=== PATIENT | male | born 1950 | race Caucasian/White ===

== ENCOUNTER 2016-07-07 08:35 | Outpatient (CLI) | payer BC | END 2016-07-07 08:36 | disposition home or self-care (01) | DX: B18.2 Chronic viral hepatitis C (principal) ==

== ENCOUNTER 2016-07-20 08:27 | Outpatient (CLI) | payer BC | END 2016-07-20 08:28 | disposition home or self-care (01) | DX: I48.91 Unspecified atrial fibrillation (principal); Z79.01 Long term (current) use of anticoagulants ==

== ENCOUNTER 2016-08-17 08:20 | Outpatient (CLI) | payer BC | END 2016-08-17 08:21 | disposition home or self-care (01) | DX: I48.91 Unspecified atrial fibrillation (principal); Z79.01 Long term (current) use of anticoagulants ==

== ENCOUNTER 2016-09-14 08:24 | Outpatient (CLI) | payer BC | END 2016-09-14 08:25 | disposition home or self-care (01) | DX: I48.91 Unspecified atrial fibrillation (principal); Z79.01 Long term (current) use of anticoagulants ==

== ENCOUNTER 2016-09-29 08:50 | Outpatient (CLI) | payer BC | END 2016-09-29 08:51 | disposition home or self-care (01) | DX: B18.2 Chronic viral hepatitis C (principal) ==

== ENCOUNTER 2016-10-12 08:45 | Outpatient (CLI) | payer BC | END 2016-10-12 08:46 | disposition home or self-care (01) | DX: I48.91 Unspecified atrial fibrillation (principal); Z79.01 Long term (current) use of anticoagulants ==

== ENCOUNTER 2016-11-09 08:18 | Outpatient (CLI) | payer BC | END 2016-11-09 08:19 | disposition home or self-care (01) | LOC: LAB.F 08:18 | PROVIDERS: ATTEND Family Medicine | DX: I48.91 Unspecified atrial fibrillation (principal); Z79.01 Long term (current) use of anticoagulants | CPT/HCPCS: 85610 ==

== ENCOUNTER 2016-12-07 08:12 | Outpatient (CLI) | payer BC | END 2016-12-07 08:13 | disposition home or self-care (01) | LOC: LAB.F 08:12 | PROVIDERS: ATTEND Family Medicine | DX: I48.91 Unspecified atrial fibrillation (principal) | CPT/HCPCS: 85610 ==

== ENCOUNTER 2017-01-04 08:28 | Outpatient (CLI) | payer BC | END 2017-01-04 08:29 | disposition home or self-care (01) | DX: I48.91 Unspecified atrial fibrillation (principal) ==

== ENCOUNTER 2017-01-25 08:56 | Outpatient (CLI) | payer BC | END 2017-01-25 08:57 | disposition home or self-care (01) | LOC: LAB.F 08:56 | PROVIDERS: ATTEND Family Medicine | DX: I48.91 Unspecified atrial fibrillation (principal) | CPT/HCPCS: 85610 ==

== ENCOUNTER 2017-02-22 08:25 | Outpatient (CLI) | payer BC | END 2017-02-22 08:26 | disposition home or self-care (01) | LOC: LAB.F 08:25 | PROVIDERS: ATTEND Family Medicine | DX: I48.91 Unspecified atrial fibrillation (principal) | CPT/HCPCS: 85610 ==

== ENCOUNTER 2017-03-22 08:25 | Outpatient (CLI) | payer BC | END 2017-03-22 08:26 | disposition home or self-care (01) | LOC: LAB.F 08:25 | PROVIDERS: ATTEND Family Medicine | DX: I48.91 Unspecified atrial fibrillation (principal); Z79.01 Long term (current) use of anticoagulants; I48.2 Chronic atrial fibrillation; Z95.2 Presence of prosthetic heart valve | CPT/HCPCS: 85610 ==

== ENCOUNTER 2017-04-19 08:26 | Outpatient (CLI) | payer BC | END 2017-04-19 08:27 | disposition home or self-care (01) | LOC: LAB.F 08:26 | PROVIDERS: ATTEND Family Medicine | DX: I48.91 Unspecified atrial fibrillation (principal); Z79.01 Long term (current) use of anticoagulants | CPT/HCPCS: 85610 ==

== ENCOUNTER 2017-05-17 08:23 | Outpatient (CLI) | payer BC | END 2017-05-17 08:24 | disposition home or self-care (01) | LOC: LAB.F 08:23 | PROVIDERS: ATTEND Family Medicine | DX: I48.91 Unspecified atrial fibrillation (principal); Z79.01 Long term (current) use of anticoagulants | CPT/HCPCS: 85610 ==

== ENCOUNTER 2017-06-14 08:14 | Outpatient (CLI) | payer BC | END 2017-06-14 08:15 | disposition home or self-care (01) | LOC: LAB.F 08:14 | PROVIDERS: ATTEND Family Medicine | DX: I48.91 Unspecified atrial fibrillation (principal); Z79.01 Long term (current) use of anticoagulants | CPT/HCPCS: 36415; 83880; 85610 ==

== ENCOUNTER 2017-07-05 08:29 | Outpatient (CLI) | payer BC | END 2017-07-05 08:30 | disposition home or self-care (01) | LOC: LAB.F 08:29 | PROVIDERS: ATTEND Family Medicine | DX: I48.91 Unspecified atrial fibrillation (principal); Z79.01 Long term (current) use of anticoagulants | CPT/HCPCS: 85610 ==

== ENCOUNTER 2017-08-02 08:27 | Outpatient (CLI) | payer BC | END 2017-08-02 08:28 | disposition home or self-care (01) | LOC: LAB.F 08:27 | PROVIDERS: ATTEND Family Medicine | DX: I48.91 Unspecified atrial fibrillation (principal); Z79.01 Long term (current) use of anticoagulants | CPT/HCPCS: 85610 ==

== ENCOUNTER 2017-08-23 08:50 | Outpatient (CLI) | payer BC | END 2017-08-23 08:51 | disposition home or self-care (01) | LOC: LAB.F 08:50 | PROVIDERS: ATTEND Family Medicine | DX: I48.91 Unspecified atrial fibrillation (principal); Z79.01 Long term (current) use of anticoagulants | CPT/HCPCS: 85610 ==

== ENCOUNTER 2017-09-13 08:41 | Outpatient (CLI) | payer BC | END 2017-09-13 08:42 | disposition home or self-care (01) | LOC: LAB.F 08:41 | PROVIDERS: ATTEND Family Medicine | DX: I48.91 Unspecified atrial fibrillation (principal); Z79.01 Long term (current) use of anticoagulants | CPT/HCPCS: 85610 ==

== ENCOUNTER 2017-10-18 09:19 | Outpatient (CLI) | payer BC | END 2017-10-18 09:20 | disposition home or self-care (01) | LOC: LAB.F 09:19 | PROVIDERS: ATTEND Family Medicine | DX: I48.91 Unspecified atrial fibrillation (principal); Z79.01 Long term (current) use of anticoagulants | CPT/HCPCS: 85610 ==

== ENCOUNTER 2017-11-01 08:43 | Outpatient (CLI) | payer BC | END 2017-11-01 08:44 | disposition home or self-care (01) | LOC: LAB.F 08:43 | PROVIDERS: ATTEND Family Medicine | DX: I48.91 Unspecified atrial fibrillation (principal); Z79.01 Long term (current) use of anticoagulants | CPT/HCPCS: 85610 ==

== ENCOUNTER 2017-11-22 08:44 | Outpatient (CLI) | payer BC | END 2017-11-22 08:45 | disposition home or self-care (01) | LOC: LAB.F 08:44 | PROVIDERS: ATTEND Family Medicine | DX: I48.91 Unspecified atrial fibrillation (principal); Z79.01 Long term (current) use of anticoagulants | CPT/HCPCS: 85610 ==

== ENCOUNTER 2017-11-25 12:05 | Emergency (ER) | payer BC ==
--- NOTE | 2017-11-25 12:51 | ED Physician Documentation ---
PD HPI HEADACHE - Stated complaint Stated Complaint: MIGRAINE/DOUBLE VISION - Chief complaint Chief Complaint: Neuro - History obtained from History obtained from: Patient - History of Present Illness Timing - onset: How many weeks ago (1+) Timing - onset during: Rest Timing - duration: Weeks (1+) Timing - details: Gradual onset, Still present Worst headache ever?: No: Worst headache ever? Location: Right Quality: Throbbing, Aching Associated symptoms: Vision changes. No: Fever, Stiff neck, Nausea, Vomiting, Weakness, Numbness, Syncope, Seizure, Eye pain Improved by: Rest, Dark room Worsened by: Light Contributing factors: Anticoagulated Similar symptoms before: Has not had sx before Recently seen: Not recently seen - Additional information Additional information: 67-year-old male with atrial fibrillation on Coumadin has developed a headache about 1 week ago and headache is persisted so on the right side and he does not usually get headaches. He is also noted in the past 48 hours he has some double vision. His vision is slightly better here in the emergency department and he notes that on the way to the hospital he had a closed when I just to see well. He has never had double vision previously. He has had a cough and congestion he has some allergies to pollen and usually he takes some Claritin that helps with this. This is not help with them recently and he is developed nasal congestion and a cough. Review of Systems Constitutional: denies: Fever, Chills, Myalgias Eyes: reports: Other (double vision) Ears: denies: Ear pain Nose: reports: Rhinorrhea / runny nose, Congestion Throat: denies: Sore throat Cardiac: denies: Chest pain / pressure, Palpitations Respiratory: reports: Cough. denies: Dyspnea GI: denies: Abdominal Pain, Nausea, Vomiting : denies: Dysuria, Frequency PD PAST MEDICAL HISTORY - Present Medications Home Medications: Ambulatory Orders Medication Instructions Recorded Confirmed Atorvastatin Calcium 40 mg PO 11/25/17 Azithromycin [Zithromax] 250 mg PO DAILY #6 tablet 11/25/17 Diltiazem HCl [Diltiazem ER] 60 mg PO 11/25/17 Furosemide [Lasix] 20 mg PO 11/25/17 Lisinopril 20 mg PO 11/25/17 Warfarin [Coumadin] 2.5 mg PO 1400 11/25/17 11/25/17 - Allergies Allergies/Adverse Reactions: Allergies Allergy/AdvReac Type Severity Reaction Status Date / Time No Known Drug Allergies Allergy Verified 11/25/17 12:10 PD ED PE NORMAL - Vitals Vital signs reviewed: Yes (hypertensive) - General General: Alert and oriented X 3, No acute distress, Well developed/nourished - HEENT HEENT: Atraumatic, PERRL, EOMI, Other (both TM's are erythematous the right is much more so than the left and there is rounding of the landmarks. ) - Neck Neck: Supple, no meningeal sign, No bony TTP - Cardiac Cardiac: RRR, No murmur - Respiratory Respiratory: No respiratory distress, Clear bilaterally - Abdomen Abdomen: Soft, Non tender - Back Back: No CVA TTP, No spinal TTP - Derm Derm: Normal color, Warm and dry, No rash - Extremities Extremities: No deformity, No edema - Neuro Neuro: Alert and oriented X 3, anchorman 2-12 intact, No motor deficit, No sensory deficit, Normal speech Eye Opening: Spontaneous Motor: Obeys Commands Verbal: Oriented GCS Score: 15 - Psych Psych: Normal mood, Normal affect Results - Vitals Vitals: Vital Signs - 24 hr 11/25/17 12:08 Temperature 36.1 C L Heart Rate 79 Respiratory 18 Rate Blood Pressure 140/99 H O2 Saturation 98 Oxygen O2 Source Room air - Labs Labs: Laboratory Tests 11/25/17 13:05 Whole Blood INR 2.0 H - Rads (name of study) CT head without Radiology: Prelim report reviewed (Impression: 1. No acute intracranial abnormality evident. No intracranial hemorrhage or space-occupying lesion. 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 3 Atherosclerosis.), EMP read indepedently, See rad report PD MEDICAL DECISION MAKING - ED course Complexity details: reviewed results, re-evaluated patient, considered differential, d/w patient, d/w family ED course: 67-year-old male with a headache for the past week on the right side is on Coumadin and his INR is 2.0. CT is without evidence of hemorrhage and on examination he does have otitis. He is administered dexamethasone 10 mg orally and we will place him on some azithromycin as well. Departure - Departure Disposition: 01 Home, Self Care Clinical Impression: Otitis media Qualifiers: Otitis media type: suppurative Chronicity: acute Laterality: right Recurrence: not specified as recurrent Spontaneous tympanic membrane rupture: without spontaneous rupture Qualified Code(s): H66.001 - Acute suppurative otitis media without spontaneous rupture of ear drum, right ear Condition: Stable Instructions: ED Otitis Media Acute Adult Follow-Up: LITTLE ALEGRE MD [Primary Care Provider] - Prescriptions: Azithromycin [Zithromax] 250 mg PO DAILY #6 tablet Comments: Today it it appears your headache is likely due to an infection in the right middle ear. We have prescribed some antibiotic. When you are on antibiotic and you are taking Coumadin you must have your INR rechecked more frequently. Have your INR rechecked in 3 days. Forms: Activity restrictions
[2017-11-25] MEDS ORDERED: DEXAMETHASONE 10 MG/ML VIAL PO STA (12:53)
--- NOTE | 2017-11-25 13:18 | CT Preliminary Report ---
Exam: CT HEAD W/O IMPRESSION: 1. No acute intracranial abnormality evident. No intracranial hemorrhage or space-occupying lesion. 2. 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 3. Atherosclerosis. [facility] SITE ID: [id number]
--- NOTE | 2017-11-25 13:18 | CT Report ---
EXAM: CT HEAD EXAM DATE: 11/25/2017 01:05 PM. CLINICAL HISTORY: Right sided headache double vision, on coumadin. COMPARISON: None. TECHNIQUE: Multiaxial CT images were obtained from the foramen magnum to the vertex. Reformats: Coron al. IV contrast: None. In accordance with CT protocol optimization, one or more of the following dose reduction techniques w ere utilized for this exam: automated exposure control, adjustment of mA and/or KV based on patient s ize, or use of iterative reconstructive technique. FINDINGS: Parenchyma: No intraparenchymal hemorrhage. No focal mass effect, midline shift, or CT findings of ac harshal infarction. Small old lacunar infarct inferior left cerebellar hemisphere. [id number] patch y periventricular white matter hypodensities, compatible with chronic ischemic microangiopathy. Mild generalized volume loss. David-white differentiation is otherwise distinct. Extraaxial Spaces: Mildly prominent in keeping with age-related volume loss. No subdural or epidural collections identified. Ventricles: Normal in size and position. Sinuses and Orbits: Imaged paranasal sinuses, orbits, and mastoids show no significant abnormality. Bones: No evidence of fracture or calvarial defect. Other: Calcified cavernous carotids and distal vertebral arteries. IMPRESSION: 1. No acute intracranial abnormality evident. No intracranial hemorrhage or space-occupying lesion. 2. 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 3. Atherosclerosis. [facility] Referring Provider Line: [phone] SITE ID: [id number]
[2017-11-25] MEDS ORDERED: CHERRY SYRUP 10 ML UDC PO ONE (13:21)
[2017-11-25 13:34] VITALS: BP 156/85
== END 2017-11-25 13:33 | disposition home or self-care (01) ==
LOC: ED 12:05
DX: H66.001 Acute suppurative otitis media without spontaneous rupture of ear drum, right ear (principal); I48.91 Unspecified atrial fibrillation; Z79.01 Long term (current) use of anticoagulants
CPT/HCPCS: 70450; 85610; 99283; 99284; A9270

== ENCOUNTER 2017-11-28 09:25 | Outpatient (CLI) | payer BC | END 2017-11-28 09:26 | disposition home or self-care (01) | LOC: LAB.F 09:25 | PROVIDERS: ATTEND Family Medicine | DX: I48.91 Unspecified atrial fibrillation (principal); Z79.01 Long term (current) use of anticoagulants | CPT/HCPCS: 85610 ==

== ENCOUNTER 2017-12-05 10:43 | Outpatient (CLI) | payer BC | END 2017-12-05 10:44 | disposition home or self-care (01) | LOC: LAB.F 10:43 | PROVIDERS: ATTEND Family Medicine | DX: I48.91 Unspecified atrial fibrillation (principal) | CPT/HCPCS: 85610 ==

== ENCOUNTER 2017-12-20 08:31 | Outpatient (CLI) | END 2017-12-20 08:32 | disposition home or self-care (01) ==

== ENCOUNTER 2018-01-03 08:28 | Outpatient (CLI) | payer BC | END 2018-01-03 08:29 | disposition home or self-care (01) | LOC: LAB.F 08:28 | PROVIDERS: ATTEND Family Medicine | DX: I48.91 Unspecified atrial fibrillation (principal); Z79.01 Long term (current) use of anticoagulants | CPT/HCPCS: 85610 ==

== ENCOUNTER 2018-01-24 08:23 | Outpatient (CLI) | payer BC | END 2018-01-24 08:24 | disposition home or self-care (01) | LOC: LAB.F 08:23 | PROVIDERS: ATTEND Family Medicine | DX: I48.91 Unspecified atrial fibrillation (principal); Z79.01 Long term (current) use of anticoagulants | CPT/HCPCS: 85610 ==

== ENCOUNTER 2018-02-16 08:42 | Outpatient (CLI) | payer BC | END 2018-02-16 08:43 | disposition home or self-care (01) | LOC: LAB.F 08:42 | PROVIDERS: ATTEND Family Medicine | DX: I48.91 Unspecified atrial fibrillation (principal); Z79.01 Long term (current) use of anticoagulants | CPT/HCPCS: 85610 ==

== ENCOUNTER 2018-03-09 08:33 | Outpatient (CLI) | payer BC | END 2018-03-09 08:34 | disposition home or self-care (01) | LOC: LAB.F 08:33 | PROVIDERS: ATTEND Family Medicine | DX: I48.91 Unspecified atrial fibrillation (principal); Z79.01 Long term (current) use of anticoagulants | CPT/HCPCS: 85610 ==

== ENCOUNTER 2018-03-24 08:16 | Outpatient (CLI) | payer BC | END 2018-03-24 08:17 | disposition home or self-care (01) | LOC: LAB.F 08:16 | PROVIDERS: ATTEND Family Medicine | DX: I48.91 Unspecified atrial fibrillation (principal); Z79.01 Long term (current) use of anticoagulants | CPT/HCPCS: 85610 ==

== ENCOUNTER 2018-04-06 08:25 | Outpatient (CLI) | payer BC | END 2018-04-06 08:26 | disposition home or self-care (01) | LOC: LAB.F 08:25 | PROVIDERS: ATTEND Family Medicine | DX: I48.91 Unspecified atrial fibrillation (principal); Z79.01 Long term (current) use of anticoagulants | CPT/HCPCS: 85610 ==

== ENCOUNTER 2018-04-20 08:54 | Outpatient (CLI) | payer BC | END 2018-04-20 08:55 | disposition home or self-care (01) | LOC: LAB.F 08:54 | PROVIDERS: ATTEND Family Medicine | DX: I48.91 Unspecified atrial fibrillation (principal); Z79.01 Long term (current) use of anticoagulants | CPT/HCPCS: 85610 ==

== ENCOUNTER 2018-05-22 08:33 | Outpatient (CLI) | payer BC | END 2018-05-22 08:34 | disposition home or self-care (01) | LOC: LAB.F 08:33 | PROVIDERS: ATTEND Family Medicine | DX: I48.91 Unspecified atrial fibrillation (principal); Z79.01 Long term (current) use of anticoagulants | CPT/HCPCS: 85610 ==

== ENCOUNTER 2018-05-31 08:22 | Outpatient (CLI) | payer BC | END 2018-05-31 08:23 | disposition home or self-care (01) | LOC: LAB.F 08:22 | PROVIDERS: ATTEND Family Medicine | DX: I48.91 Unspecified atrial fibrillation (principal); Z79.01 Long term (current) use of anticoagulants | CPT/HCPCS: 85610 ==

== ENCOUNTER 2018-06-21 08:18 | Outpatient (CLI) | payer BC | END 2018-06-21 08:19 | disposition home or self-care (01) | LOC: LAB.F 08:18 | PROVIDERS: ATTEND Family Medicine | DX: I48.91 Unspecified atrial fibrillation (principal); Z79.01 Long term (current) use of anticoagulants | CPT/HCPCS: 85610 ==

== ENCOUNTER 2018-07-05 08:33 | Outpatient (CLI) | payer BC | END 2018-07-05 08:34 | disposition home or self-care (01) | LOC: LAB.F 08:33 | PROVIDERS: ATTEND Family Medicine | DX: I48.91 Unspecified atrial fibrillation (principal); Z79.01 Long term (current) use of anticoagulants | CPT/HCPCS: 85610 ==

== ENCOUNTER 2018-07-26 08:51 | Outpatient (CLI) | payer BC | END 2018-07-26 08:52 | disposition home or self-care (01) | LOC: LAB.F 08:51 | PROVIDERS: ATTEND Family Medicine | DX: I48.91 Unspecified atrial fibrillation (principal); Z79.01 Long term (current) use of anticoagulants | CPT/HCPCS: 85610 ==

== ENCOUNTER 2018-08-09 08:34 | Outpatient (CLI) | payer BC | END 2018-08-09 08:35 | disposition home or self-care (01) | LOC: LAB.F 08:34 | PROVIDERS: ATTEND Family Medicine | DX: I48.91 Unspecified atrial fibrillation (principal); Z79.01 Long term (current) use of anticoagulants | CPT/HCPCS: 85610 ==

== ENCOUNTER 2018-08-30 11:32 | Outpatient (CLI) | payer BC | END 2018-08-30 11:33 | disposition home or self-care (01) | LOC: LAB.F 11:32 | PROVIDERS: ATTEND Family Medicine | DX: I48.91 Unspecified atrial fibrillation (principal); Z79.01 Long term (current) use of anticoagulants | CPT/HCPCS: 85610 ==

== ENCOUNTER 2018-09-13 12:34 | Outpatient (CLI) | payer BC | END 2018-09-13 12:35 | disposition home or self-care (01) | LOC: LAB.F 12:34 | PROVIDERS: ATTEND Family Medicine | DX: I48.91 Unspecified atrial fibrillation (principal); Z79.01 Long term (current) use of anticoagulants | CPT/HCPCS: 85610 ==

== ENCOUNTER 2018-10-05 10:36 | Outpatient (CLI) | payer MEDICARE | END 2018-10-05 10:37 | disposition home or self-care (01) | LOC: LAB.F 10:36 | PROVIDERS: ATTEND Family Medicine | DX: I48.91 Unspecified atrial fibrillation (principal); Z79.01 Long term (current) use of anticoagulants | CPT/HCPCS: 85610 ==

== ENCOUNTER 2018-10-19 11:03 | Outpatient (CLI) | payer MEDICARE | END 2018-10-19 11:04 | disposition home or self-care (01) | LOC: LAB.F 11:03 | PROVIDERS: ATTEND Family Medicine | DX: I48.91 Unspecified atrial fibrillation (principal); Z79.01 Long term (current) use of anticoagulants | CPT/HCPCS: 85610 ==

== ENCOUNTER 2018-11-09 09:44 | Outpatient (CLI) | payer MEDICARE | END 2018-11-09 09:45 | disposition home or self-care (01) | LOC: LAB.F 09:44 | PROVIDERS: ATTEND Family Medicine | DX: I48.91 Unspecified atrial fibrillation (principal); Z79.01 Long term (current) use of anticoagulants | CPT/HCPCS: 85610 ==

== ENCOUNTER 2018-11-30 09:39 | Outpatient (CLI) | payer MEDICARE | END 2018-11-30 09:40 | disposition home or self-care (01) | LOC: LAB.F 09:39 | PROVIDERS: ATTEND Family Medicine | DX: I48.91 Unspecified atrial fibrillation (principal); Z79.01 Long term (current) use of anticoagulants | CPT/HCPCS: 85610 ==

== ENCOUNTER 2018-12-27 08:48 | Outpatient (CLI) | payer MEDICARE | END 2018-12-27 08:49 | disposition home or self-care (01) | LOC: LAB.S 08:48 | PROVIDERS: ATTEND Family Medicine | DX: I48.91 Unspecified atrial fibrillation (principal); Z79.01 Long term (current) use of anticoagulants | CPT/HCPCS: 85610 ==

== ENCOUNTER 2019-01-04 09:08 | Outpatient (CLI) | payer MEDICARE ==
[2019-01-04] MEDS ORDERED: ALBUTEROL NEB 2.5 MG/3 ML INH ONE (09:45)
== END 2019-01-04 09:09 | disposition home or self-care (01) ==
LOC: RT 09:08
PROVIDERS: ATTEND Specialist
DX: R06.02 Shortness of breath (principal); G47.33 Obstructive sleep apnea (adult) (pediatric); I10 Essential (primary) hypertension; Z95.2 Presence of prosthetic heart valve; Z98.890 Other specified postprocedural states
CPT/HCPCS: 94060; 94664; 94727; 94729

== ENCOUNTER 2019-02-15 11:21 | Outpatient (CLI) | payer MEDICARE ==
[2019-02-15 17:11] LABS: ALBUMIN 4.5 g/dL (3.2-5.5); CALCIUM 9.1 mg/dL (8.5-10.3); CREATININE 1.2 mg/dL (0.6-1.2); PHOSPHORUS 3.2 mg/dL (2.5-4.6)
[2019-02-15 17:19] LABS: CREATININE,URINE 234.6 mg/dL; MICROALBUM/CREATININE RATIO,UR 94.2 ug/mg (<30.0); MICROALBUMIN,URINE 22.1 mg/dL (0-300.0)
[2019-02-15 17:20] LABS: HB2 TOTAL 15.4 g/dL; HEMOGLOBIN A1C 0.71 g/dL; HEMOGLOBIN A1C % 6.4 % (4.6-6.2)
== END 2019-02-15 11:22 | disposition home or self-care (01) ==
LOC: LAB.S 11:21
PROVIDERS: ATTEND Family Medicine
DX: N18.3 Chronic kidney disease, stage 3 (moderate) (principal); R73.09 Other abnormal glucose
CPT/HCPCS: 36415; 80069; 82043; 82570; 83036

== ENCOUNTER 2019-03-01 10:36 | Outpatient (CLI) | payer MEDICARE | END 2019-03-01 10:37 | disposition home or self-care (01) | LOC: LAB.S 10:36 | PROVIDERS: ATTEND Family Medicine | DX: I48.91 Unspecified atrial fibrillation (principal); Z79.01 Long term (current) use of anticoagulants | CPT/HCPCS: 85610 ==

== ENCOUNTER 2019-03-14 08:52 | Outpatient (CLI) | payer MEDICARE | END 2019-03-14 08:53 | disposition home or self-care (01) | LOC: LAB.S 08:52 | PROVIDERS: ATTEND Family Medicine | DX: I48.91 Unspecified atrial fibrillation (principal); Z79.01 Long term (current) use of anticoagulants | CPT/HCPCS: 85610 ==

== ENCOUNTER 2019-03-28 10:19 | Outpatient (CLI) | payer MEDICARE | END 2019-03-28 10:20 | disposition home or self-care (01) | LOC: LAB.S 10:19 | PROVIDERS: ATTEND Family Medicine | DX: I48.91 Unspecified atrial fibrillation (principal); Z79.01 Long term (current) use of anticoagulants | CPT/HCPCS: 85610 ==

== ENCOUNTER 2019-05-02 10:09 | Outpatient (CLI) | payer MEDICARE | END 2019-05-02 10:10 | disposition home or self-care (01) | LOC: LAB.S 10:09 | PROVIDERS: ATTEND Family Medicine | DX: I48.91 Unspecified atrial fibrillation (principal); Z79.01 Long term (current) use of anticoagulants | CPT/HCPCS: 85610 ==

== ENCOUNTER 2019-05-20 19:30 | Outpatient (CLI) | payer MEDICARE | END 2019-05-20 23:59 | disposition home or self-care (01) | LOC: SC 19:30 | PROVIDERS: ATTEND Internal Medicine Pulmonary Disease | DX: G47.33 Obstructive sleep apnea (adult) (pediatric) (principal) | CPT/HCPCS: G0399 ×2; 95806 ==

== ENCOUNTER 2019-05-30 10:30 | Outpatient (CLI) | payer MEDICARE | END 2019-05-30 10:31 | disposition home or self-care (01) | LOC: LAB.S 10:30 | PROVIDERS: ATTEND Family Medicine | DX: I48.91 Unspecified atrial fibrillation (principal); Z79.01 Long term (current) use of anticoagulants | CPT/HCPCS: 85610 ==

== ENCOUNTER 2019-06-14 11:24 | Outpatient (CLI) | payer MEDICARE | END 2019-06-14 11:25 | disposition home or self-care (01) | LOC: LAB.S 11:24 | PROVIDERS: ATTEND Family Medicine | DX: Z79.01 Long term (current) use of anticoagulants (principal); I48.91 Unspecified atrial fibrillation | CPT/HCPCS: 85610 ==

== ENCOUNTER 2019-07-04 10:09 | Outpatient (CLI) | payer BC, MEDICARE ==
[2019-07-04 11:13] VITALS: BP 140/80
--- NOTE | 2019-07-04 11:13 | SLEEP CARE CONSULTATION ---
Information from patient questionnaire entered by Ayala Lares. I have reviewed and concur with the information entered by Ayala Lares. This document represents the service I personally performed and the decisions made by me, Chery Hills, RN, MSN, [employer]. History of Present Illness Initial [place] Sleepiness Scale score: 3 Current [place] Sleepiness Scale score: 4 Additional HPI information: WERNER LUTZ returns for follow up and results of the recently performed home sleep study. I explained the pathophysiology behind obstructive sleep apnea. We then spent quite a bit of time discussing different treatment options. For mild obstructive sleep apnea, surgery and oral appliance are alternatives to nasal CPAP therapy but in moderate or severe cases, nasal CPAP is the most effective and reliable treatment. I reviewed the impact of weight changes on sleep apnea and strongly recommended losing weight. After some discussion, the patient opted to continue with the nasal CPAP therapy. Currently his CPAP is about 6 years old and has started to make wheezing noise with use. Current autoCPAP set at 5-20 with mean pressure of 8.6 and 90% pressure of 10.6 with good control of his apnea noted on initial visit compliance. Thus I will update his CPAP and set it at 8-12cm H20. I showed him how to use the ramp on a sample device. A manual titration study will be ordered if unable to find optimal pressure with office adjustments. I explained how CPAP machine works with sample devices RespirAthersyss Dreamstation and ResMy COI [id number] and what to expect when using the machine. Using CPAP every night in order to get used to it was emphasized. Patient advised to put CPAP mask on before getting into bed so as not to fall asleep without CPAP. To assist acclimation to CPAP use, it could also be used for a short time during day while reading or watching TV. The patient was instructed to call the CPAP supplier to discuss any mechanical problem that may occur. If the mask given is uncomfortable or is difficult to keep on through the night even with adjustment, contact the CPAP supplier as many will replace with another mask style if notified before 30 days. If snoring or perceives is not getting enough air or too much air from the machine, notify this office. [facility] patient education PAP tips reviewed and given to patient. Patient prefers the Dreamstation. Patient counseled not drink alcohol less than 4 hours before bedtime as it can increase snoring and apnea. Patient was cautioned about risks of drowsy driving until sleepiness symptoms resolve. Patient denies drowsy driving. Sleep Study - Results Polysomnography/Home Sleep Study results: SLEEP TIME AND EFFICIENCY: The sleep study recording began at 12:22:09 AM and ended at 07:48:07 AM. Total recording time was 446.0 minutes. The total sleep time was 238.5 minutes. The sleep efficiency was 53.5 percent. The patient spent 76.4 minutes supine, and spent 162.1 minutes non-supine. The patients own estimate of sleep time was 6.50 hours. RESPIRATORY DATA: The AHI in this report is indexed to sleep time based on actigraphy. The AASM defines this as INGRID. The AHI on this type 3 Home Sleep Jet dy may understate the AHI determined on a type 1 or 2 study, since EEG is not monitored resulting in the inability to score non-desaturating hypopneas. Based on 4% Calculation: The AHI 4% calculation of 26.7 per hour of recording time was based on a total of 76 scored apneas and 30 scored hypopneas with 4% desaturations. Supine AHI4%: 27.5 per hour. Non-supine AHI4%: 25.5 per hour. Oxygen Summary: Patient's baseline O2 saturation was 93.8 %. The patient spent 3.2 minutes at an oxygen saturation less than 90%, and 0.4 minutes less than 85%. The desaturation index was 15.6 events per hour sleep time. The lowest saturation was 78.7 %. SNORING: The percent of the study time spent snoring was 1.8 %. The Snoring Count was 143 . The Snoring Index was 36.0 . Patient Name: Werner Lutz Study Date: 05/20/2019 : 1950 Page 2 of 7 PULSE RATE REVIEW: The mean heart rate was 69 beats per minute. The rate ranged from a low of 33 to a high of 194 beats per minute. DIAGNOSIS CODE: Moderate obstructive sleep apnea G47.33 Moderate desaturations were noted. Allergies and Home Medications Known drug allergies: Yes Home medication list reviewed: Yes (no changes ) Review of Systems Review of systems same as previous: No (recent cold ) Physical Exam Blood Pressure: 140/80 Cuff size: long Heart Rate: 94 (irregular) O2 Saturation: 98 Height: 5 ft 9 in Weight: 223 lb 6.4 oz Body Mass Index: 33.0 BMI Classification: Obesity Class 1 Impression and Plan 1. Obstructive Sleep Apnea-Hypopnea Syndrome, moderate, with lowest oxygen saturation of 78%. Positive pressure therapy could benefit his atrial fibrillation and hypertension. As mentioned above, the patient will have his old malfunctioning CPAP updated to a Dreamstation autoCPAP therapy with pressure set at 8-12 cmH2O. A manual titration study will be completed if unable to find optimal treatment pressure with office adjustments. Compliance guidelines also reviewed. A copy of compliance guidelines will be given for reference at check out. Patient wears a full face mask. * Update CPAP :Dreamstation auto CPAP therapy, pressure at 8-12 cm H2O. * Attempt to lose weight. * Avoid alcohol consumption near bedtime. * Avoid supine sleep until using CPAP. * The patient is again cautioned about driving until sleepiness completely resolves. * Return one month after CPAP obtained. I will assess response to therapy and compliance at that time. Time Spent with Patient (minutes): 30 I spent 100% of this visit face to face with the patient with greater than 50% of this was spent time counseling the patient and coordination of care.
== END 2019-07-04 10:10 | disposition home or self-care (01) ==
LOC: SC 10:09
PROVIDERS: ATTEND Nurse Practitioner Family
DX: G47.33 Obstructive sleep apnea (adult) (pediatric) (principal); E66.9 Obesity, unspecified; Z68.33 Body mass index [BMI] 33.0-33.9, adult
CPT/HCPCS: 99214; G0463; 99212

== ENCOUNTER 2019-07-12 08:52 | Outpatient (CLI) | payer MEDICARE | END 2019-07-12 08:53 | disposition home or self-care (01) | LOC: LAB.S 08:52 | PROVIDERS: ATTEND Family Medicine | DX: Z79.01 Long term (current) use of anticoagulants (principal); I48.91 Unspecified atrial fibrillation | CPT/HCPCS: 85610 ==

== ENCOUNTER 2019-08-02 09:52 | Outpatient (CLI) | payer MEDICARE | END 2019-08-02 09:53 | disposition home or self-care (01) | LOC: LAB.S 09:52 | PROVIDERS: ATTEND Family Medicine | DX: I48.91 Unspecified atrial fibrillation (principal); Z79.01 Long term (current) use of anticoagulants | CPT/HCPCS: 85610 ==

== ENCOUNTER 2019-08-23 10:41 | Outpatient (CLI) | payer MEDICARE | END 2019-08-23 10:42 | disposition home or self-care (01) | LOC: LAB.S 10:41 | PROVIDERS: ATTEND Family Medicine | DX: I48.91 Unspecified atrial fibrillation (principal); Z79.01 Long term (current) use of anticoagulants | CPT/HCPCS: 85610 ==

== ENCOUNTER 2019-09-20 08:06 | Outpatient (CLI) | payer BC, MEDICARE | END 2019-09-20 08:07 | disposition home or self-care (01) | LOC: LAB.S 08:06 | PROVIDERS: ATTEND Family Medicine | DX: I48.91 Unspecified atrial fibrillation (principal); Z79.01 Long term (current) use of anticoagulants | CPT/HCPCS: 85610 ==

== ENCOUNTER 2019-10-04 09:34 | Outpatient (CLI) | payer MEDICARE | END 2019-10-04 09:35 | disposition home or self-care (01) | LOC: LAB 09:34 | PROVIDERS: ATTEND Family Medicine | DX: I48.91 Unspecified atrial fibrillation (principal); Z79.01 Long term (current) use of anticoagulants | CPT/HCPCS: 85610 ==

== ENCOUNTER 2019-10-08 14:26 | Outpatient (CLI) | payer MEDICARE ==
--- NOTE | 2019-10-08 13:40 | SLEEP CARE CONSULTATION ---
Information from patient questionnaire entered by Imelda Camacho. I have reviewed and concur with the information entered by Imelda Camacho. This document represents the service I personally performed and the decisions made by me, Isis Lees MD, [facility]. History of Present Illness Service Date and Time: 10/08/2019 1320 Previous diagnosis: Moderate, Obstructive Sleep Apnea-Hypopnea Syndrome AHI: 26.7 Reason for follow up: first compliance Equipment type: CPAP Equipment obtained from: [facility] Type of Sleep Study: Home sleep study HPI additional information: To minimize the risk of COVID-19 exposure, the patient has requested and consented to this video telemedicine visit. The patient also agrees to having his insurance billed. HPI: Mr. Sloan was called today to follow up on the nasal CPAP therapy. He was diagnosed to have moderate obstructive sleep apnea-hypopnea syndrome. He acquired a new machine in June this year. The patient wears a Respironics AmaraView full face mask size M. He reports using the device nightly and all through the night. The compliance report shows usage in 83 nights out of the past 83 nights, averaging 6 hours a night. The > 4 hour compliance rate for the past 83 days is 79.5%. He complained of the mask being too small but no particular problem with the device such as soreness on the face, dry nose, epistaxis, nasal congestion or headache. He thinks that the pressure of 8 12 cmH2O is comfortable. On the CPAP therapy he notices improvement in his sleep quality, and that he wakes up feeling fresher in the morning and more awake/alert during the day. His notices no snore at all. The average residual AHI is 6.3; and average time in large leak per day is 37 minutes. The 90th percentile pressure is 11.4 cmH2O. CPAP Compliance Data - Data Reviewed with Patient Average duration of nightly device use: 5h 21m Compliance rate %: 73.3 Current pressure setting (cmH2O): 8-12 Humidity settin Heated hose settin Average residual AHI: 6.7 Average large leak: 37m 15s Subjective Initial [place] Sleepiness Scale score: 3 Allergies and Home Medications Drug allergies reviewed: Yes Home medication list reviewed: Yes Review of Systems Review of systems same as previous: Yes Physical Exam Height: 5 ft 9 in Impression and Plan IMPRESSION: 1. Obstructive Sleep Apnea-Hypopnea Syndrome, moderate (AHI = 26.7), with the patient doing well on nasal CPAP therapy. He has excellent compliance and significant clinical improvement. The current pressure appears effective and comfortable. Overall, he is very satisfied with treatment and plans to continue with it long-term. Because the residual AHI is slightly high, I will raise the pressure on his machine. PLAN: 1. Raise pressure to 10 - 14 cmH2O via the modem, done. 2. Try to lose weight 3. Try AmaraView size Large. 4. Try Respironics DreamWear full face mask 54. Return in one year for follow up or earlier if there is any problem with the treatment. Visit Type: Telehealth Video Video Type: Otelic Location of Provider: Home Patient agrees and consents to this telehealth visit type: Yes Time Spent with Patient (minutes): 15 Provider Statement: I spent 100% of the Telehealth Video Call with the patient with greater than 50% spent counseling the patient and coordination of care.
== END 2019-10-08 14:27 | disposition home or self-care (01) ==
LOC: SC 14:26
PROVIDERS: ATTEND Internal Medicine Pulmonary Disease
DX: G47.33 Obstructive sleep apnea (adult) (pediatric) (principal)
CPT/HCPCS: 99212; 99213

== ENCOUNTER 2019-10-25 09:18 | Outpatient (CLI) | payer MEDICARE | END 2019-10-25 09:19 | disposition home or self-care (01) | LOC: LAB 09:18 | PROVIDERS: ATTEND Family Medicine | DX: I48.91 Unspecified atrial fibrillation (principal); Z79.01 Long term (current) use of anticoagulants | CPT/HCPCS: 85610 ==

== ENCOUNTER 2019-11-15 08:39 | Outpatient (CLI) | payer MEDICARE | END 2019-11-15 08:40 | disposition home or self-care (01) | LOC: LAB 08:39 | PROVIDERS: ATTEND Family Medicine | DX: I48.91 Unspecified atrial fibrillation (principal); Z79.01 Long term (current) use of anticoagulants | CPT/HCPCS: 85610 ==

== ENCOUNTER 2019-12-14 10:34 | Outpatient (CLI) | payer MEDICARE | END 2019-12-14 10:35 | disposition home or self-care (01) | LOC: LAB.S 10:34 | PROVIDERS: ATTEND Family Medicine | DX: I48.91 Unspecified atrial fibrillation (principal); Z79.01 Long term (current) use of anticoagulants | CPT/HCPCS: 85610 ==

== ENCOUNTER 2020-01-11 12:09 | Outpatient (CLI) | payer MEDICARE | END 2020-01-11 12:10 | disposition home or self-care (01) | LOC: LAB.S 12:09 | PROVIDERS: ATTEND Family Medicine | DX: I48.91 Unspecified atrial fibrillation (principal); Z79.01 Long term (current) use of anticoagulants | CPT/HCPCS: 85610 ==

== ENCOUNTER 2020-02-11 10:53 | Outpatient (CLI) | payer MEDICARE | END 2020-02-11 10:54 | disposition home or self-care (01) | LOC: LAB.S 10:53 | PROVIDERS: ATTEND Family Medicine | DX: I48.91 Unspecified atrial fibrillation (principal); Z79.01 Long term (current) use of anticoagulants | CPT/HCPCS: 85610 ==

== ENCOUNTER 2020-03-11 11:28 | Outpatient (CLI) | payer MEDICARE | END 2020-03-11 11:29 | disposition home or self-care (01) | LOC: LAB.S 11:28 | PROVIDERS: ATTEND Family Medicine | DX: I48.91 Unspecified atrial fibrillation (principal); Z79.01 Long term (current) use of anticoagulants | CPT/HCPCS: 85610 ==

== ENCOUNTER 2020-03-17 12:45 | Outpatient (CLI) | payer MEDICARE | END 2020-03-17 12:46 | disposition home or self-care (01) | LOC: LAB.S 12:45 | PROVIDERS: ATTEND Family Medicine | DX: I48.91 Unspecified atrial fibrillation (principal); Z79.01 Long term (current) use of anticoagulants | CPT/HCPCS: 85610 ==

== ENCOUNTER 2020-03-24 13:44 | Outpatient (CLI) | payer MEDICARE | END 2020-03-24 13:45 | disposition home or self-care (01) | LOC: LAB.S 13:44 | PROVIDERS: ATTEND Family Medicine | DX: I48.91 Unspecified atrial fibrillation (principal); Z79.01 Long term (current) use of anticoagulants | CPT/HCPCS: 85610 ==

== ENCOUNTER 2020-03-31 13:35 | Outpatient (CLI) | payer MEDICARE | END 2020-03-31 13:36 | disposition home or self-care (01) | LOC: LAB.S 13:35 | PROVIDERS: ATTEND Family Medicine | DX: I48.91 Unspecified atrial fibrillation (principal); Z79.01 Long term (current) use of anticoagulants | CPT/HCPCS: 85610 ==

== ENCOUNTER 2020-04-14 13:02 | Outpatient (CLI) | payer MEDICARE | END 2020-04-14 13:03 | disposition home or self-care (01) | LOC: LAB.S 13:02 | PROVIDERS: ATTEND Family Medicine | DX: I48.91 Unspecified atrial fibrillation (principal); Z79.01 Long term (current) use of anticoagulants | CPT/HCPCS: 85610 ==

== ENCOUNTER 2020-04-21 11:59 | Outpatient (CLI) | payer MEDICARE | END 2020-04-21 12:00 | disposition home or self-care (01) | LOC: LAB.S 11:59 | PROVIDERS: ATTEND Family Medicine | DX: I48.91 Unspecified atrial fibrillation (principal); Z79.01 Long term (current) use of anticoagulants | CPT/HCPCS: 85610 ==

== ENCOUNTER 2020-04-28 14:30 | Outpatient (CLI) | payer MEDICARE | END 2020-04-28 14:31 | disposition home or self-care (01) | LOC: LAB.S 14:30 | PROVIDERS: ATTEND Family Medicine | DX: I48.91 Unspecified atrial fibrillation (principal); Z79.01 Long term (current) use of anticoagulants | CPT/HCPCS: 85610 ==

== ENCOUNTER 2020-05-05 12:14 | Outpatient (CLI) | payer MEDICARE | END 2020-05-05 12:15 | disposition home or self-care (01) | LOC: LAB.S 12:14 | PROVIDERS: ATTEND Family Medicine | DX: I48.91 Unspecified atrial fibrillation (principal); Z79.01 Long term (current) use of anticoagulants | CPT/HCPCS: 85610 ==

== ENCOUNTER 2020-05-12 11:56 | Outpatient (CLI) | payer MEDICARE | END 2020-05-12 11:57 | disposition home or self-care (01) | LOC: LAB.S 11:56 | PROVIDERS: ATTEND Family Medicine | DX: I48.91 Unspecified atrial fibrillation (principal); Z79.01 Long term (current) use of anticoagulants | CPT/HCPCS: 85610 ==

== ENCOUNTER 2020-05-19 12:23 | Outpatient (CLI) | payer MEDICARE | END 2020-05-19 12:24 | disposition home or self-care (01) | LOC: LAB.S 12:23 | PROVIDERS: ATTEND Family Medicine | DX: I48.91 Unspecified atrial fibrillation (principal); Z79.01 Long term (current) use of anticoagulants | CPT/HCPCS: 85610 ==